=== PATIENT | male | born 1975 | race Caucasian/White ===

== ENCOUNTER 2022-11-11 15:37 | Emergency (ER) | payer BC ==
[2022-11-11] MEDS ORDERED: Sodium Chloride 0.9% 10 ML Syringe FLUSH PRN (15:46)
[2022-11-11 16:24] LABS: BASOPHILS ABSOLUTE AUTO 0.05 K/uL (0.00-0.10); BASOPHILS PERCENT AUTO 0.4 % (0.1-1.3); EOSINOPHILS ABSOLUTE AUTO 0.04 K/uL (0.00-0.40); EOSINOPHILS PERCENT AUTO 0.3 % (0.0-5.4); HEMATOCRIT 45.1 % (38.4-49.7); HEMOGLOBIN 16.3 g/dL (12.9-16.9); IMMATURE GRAN ABSOLUTE AUTO 0.08 K/uL (0.00-0.23); IMMATURE GRAN PERCENT AUTO 0.7 % (0.0-0.7); LYMPHOCYTES ABSOLUTE AUTO 1.56 K/uL (0.8-3.3); LYMPHOCYTES PERCENT AUTO 13.2 % (11.4-47.7); MEAN CORPUSCULAR HEMOGLOBIN 33.3 pg (31.6-35.5); MEAN CORPUSCULAR HGB CONC 36.1 g/dL (31.6-35.5); MONOCYTES ABSOLUTE AUTO 1.01 K/uL (0.20-0.90); MONOCYTES PERCENT AUTO 8.5 % (3.3-12.6); NEUTROPHILS PERCENT AUTO 76.9 % (40.0-78.1); PLATELET COUNT,PLT 358 K/uL (130-375); WHITE BLOOD CELL COUNT,WBC 11.8 K/uL (3.2-11.0)
[2022-11-11 16:54] LABS: CALCIUM 8.9 mg/dL (8.5-10.1); CREATININE 1.1 mg/dL (0.8-1.3); EST CRCL DRUG DOSING (CG) 92.81 mL/min; MAGNESIUM 1.2 mg/dL (1.8-2.4); POTASSIUM,K 3.6 mmol/L (3.6-5.2); T4 FREE 0.99 ng/dL (0.76-1.46); TSH ULTRASENSITIVE 2.725 uIU/mL (0.358-3.740)
[2022-11-11 16:58] LABS: ANION GAP 16.6 mmol/L (5.0-14.0)
[2022-11-11] MEDS ORDERED: Magnesium Oxide 400 MG Tab PO ONE (17:16)
[2022-11-11] MEDS ORDERED: Aspirin 81 MG Tab.Chew PO ONE (17:16)
== END 2022-11-11 17:42 | disposition home or self-care (01) ==
LOC: JP.ED 15:37
DX: E83.42 Hypomagnesemia (principal); R00.2 Palpitations; E11.9 Type 2 diabetes mellitus without complications; E78.5 Hyperlipidemia, unspecified; I10 Essential (primary) hypertension; E87.8 Other disorders of electrolyte and fluid balance, not elsewhere classified; Z79.899 Other long term (current) drug therapy
CPT/HCPCS: 36415; 80048; 83735; 84100; 84439; 84443; 84484; 85025; 93005; 99285; A9270; J3490

== ENCOUNTER 2022-11-12 21:21 | Inpatient (IN) | payer BC ==
[2022-11-12] MEDS ORDERED: Adenosine 6 MG/2 ML SDV ONE (21:32)
[2022-11-12] MEDS ORDERED: Sodium Chloride 0.9% 10 ML Syringe FLUSH PRN (21:34)
[2022-11-12 21:41] LABS: BASOPHILS ABSOLUTE AUTO 0.05 K/uL (0.00-0.10); BASOPHILS PERCENT AUTO 0.6 % (0.1-1.3); EOSINOPHILS ABSOLUTE AUTO 0.04 K/uL (0.00-0.40); EOSINOPHILS PERCENT AUTO 0.4 % (0.0-5.4); HEMOGLOBIN 16.2 g/dL (12.9-16.9); IMMATURE GRAN PERCENT AUTO 0.2 % (0.0-0.7); LYMPHOCYTES ABSOLUTE AUTO 1.96 K/uL (0.8-3.3); LYMPHOCYTES PERCENT AUTO 21.6 % (11.4-47.7); MEAN CORPUSCULAR HEMOGLOBIN 33.1 pg (31.6-35.5); MEAN CORPUSCULAR VOLUME 91.8 fL (81.4-99.0); MONOCYTES ABSOLUTE AUTO 0.87 K/uL (0.20-0.90); MONOCYTES PERCENT AUTO 9.6 % (3.3-12.6); NEUTROPHILS ABSOLUTE AUTO 6.15 K/uL (1.0-7.6); NEUTROPHILS PERCENT AUTO 67.6 % (40.0-78.1); PLATELET COUNT,PLT 325 K/uL (130-375); WHITE BLOOD CELL COUNT,WBC 9.1 K/uL (3.2-11.0)
[2022-11-12 21:48] LABS: IMMATURE GRAN ABSOLUTE AUTO 0.02 K/uL (0.00-0.23)
[2022-11-12] MEDS ORDERED: fentaNYL 100 MCG/2 ML SDV IVPUSH ONE (22:03)
[2022-11-12 22:11] LABS: ALANINE AMINOTRANSFERASE,ALT 46 U/L (12-78); ALBUMIN 3.7 g/dL (3.4-5.0); ALKALINE PHOSPHATASE 84 U/L (46-116); ASPARTATE AMNIOTRANSFERASE,AST 32 U/L (15-37); BILIRUBIN TOTAL 0.4 mg/dL (0.2-1.0); BLOOD UREA NITROGEN,BUN 15 mg/dL (7-18); CALCIUM 8.4 mg/dL (8.5-10.1); CARBON DIOXIDE,CO2 25 mmol/L (21-32); CHLORIDE,CL 96 mmol/L (100-108); CREATININE 1.2 mg/dL (0.8-1.3); EST CRCL DRUG DOSING (CG) 85.08 mL/min; ESTIMATED GFR 75 mL/min (>60); GLUCOSE RANDOM 147 mg/dL (74-106); MAGNESIUM 1.8 mg/dL (1.8-2.4); POTASSIUM,K 3.5 mmol/L (3.6-5.2); PROTEIN TOTAL,TP 7.5 g/dL (6.4-8.2); SODIUM,NA 135 mmol/L (140-148); TROPONIN I HIGH SENSITIVITY 4.5 pg/mL (<=60.3); TSH ULTRASENSITIVE 8.981 uIU/mL (0.358-3.740)
[2022-11-12 22:12] LABS: ANION GAP 17.5 mmol/L (5.0-14.0)
[2022-11-12] MEDS ORDERED: Ibutilide 1 MG/10 ML Vial IVPUSH ONE ×2 (22:17→22:46)
[2022-11-12] MEDS ORDERED: Diltiazem 100 MG in Sodium Chloride 0.9% 100 ML IV SCH (23:45)
[2022-11-12] MEDS ORDERED: Propofol 200 MG/20 ML SDV ONE (23:51)
[2022-11-13] MEDS ORDERED: fentaNYL 100 MCG/2 ML SDV IVPUSH ONE (01:07)
[2022-11-13] MEDS ORDERED: Ondansetron 4 MG/2 ML SDV IV PRN (01:39)
[2022-11-13] MEDS ORDERED: Diltiazem 100 MG in Sodium Chloride 0.9% 100 ML IV SCH (01:39)
[2022-11-13] MEDS ORDERED: Albuterol 0.083% 2.5 MG/3 ML Neb Soln NEB PRN (01:39)
[2022-11-13] MEDS ORDERED: Sodium Chloride 0.9% 10 ML Syringe FLUSH PRN (01:39)
[2022-11-13] MEDS ORDERED: Glucose Gel 15 GM in 37.5 GM Tube PO PRN (01:39)
[2022-11-13] MEDS ORDERED: LORazepam 2 MG/ML SDV IV SCH (01:39)
[2022-11-13] MEDS ORDERED: 50% Dextrose in Water 50 ML Syringe IV PRN (01:39)
[2022-11-13] MEDS ORDERED: HYDROmorphone 0.5 MG/0.5 ML Syringe IVPUSH PRN (01:39)
[2022-11-13] MEDS ORDERED: MVI, Adult with Vitamin K 10 ML, Thiamine 100 MG, Folic Acid 1 MG, Magnesium Sulfate 2 ... IV ONE ×5 (01:39)
[2022-11-13] MEDS ORDERED: Polyethylene Glycol 3350 Powder 17 GM Packet PO PRN (01:39)
[2022-11-13] MEDS: HYDROmorphone 1 MG/ML Syringe IVPUSH PRN ×4 (02:10→08:55)
[2022-11-13] MEDS: Acetaminophen 325 MG Tab PO PRN ×2 (02:10→08:55)
[2022-11-13] MEDS: Gabapentin 400 MG Cap PO SCH ×3 (02:10→17:13)
[2022-11-13] MEDS ORDERED: HYDROmorphone 0.5 MG/0.5 ML Syringe IVPUSH STA (03:30)
[2022-11-13] MEDS ORDERED: LORazepam 1 MG Tab ONE (04:05)
[2022-11-13] MEDS ORDERED: LORazepam 1 MG Tab PO ONE (04:59)
[2022-11-13] MEDS ORDERED: HYDROmorphone 1 MG/ML Syringe ONE (04:59)
[2022-11-13 06:58] LABS: ANION GAP 19.1 mmol/L (5.0-14.0); CALCIUM 7.8 mg/dL (8.5-10.1); CREATININE 0.9 mg/dL (0.8-1.3); EST CRCL DRUG DOSING (CG) 113.44 mL/min; POTASSIUM,K 4.1 mmol/L (3.6-5.2)
[2022-11-13 07:01] LABS: BASOPHILS ABSOLUTE AUTO 0.04 K/uL (0.00-0.10); BASOPHILS PERCENT AUTO 0.4 % (0.1-1.3); EOSINOPHILS ABSOLUTE AUTO 0.03 K/uL (0.00-0.40); EOSINOPHILS PERCENT AUTO 0.3 % (0.0-5.4); IMMATURE GRAN ABSOLUTE AUTO 0.03 K/uL (0.00-0.23); IMMATURE GRAN PERCENT AUTO 0.3 % (0.0-0.7); LYMPHOCYTES ABSOLUTE AUTO 1.44 K/uL (0.8-3.3); LYMPHOCYTES PERCENT AUTO 12.8 % (11.4-47.7); MEAN CORPUSCULAR HEMOGLOBIN 33.3 pg (31.6-35.5); MEAN CORPUSCULAR HGB CONC 35.7 g/dL (31.6-35.5); MEAN CORPUSCULAR VOLUME 93.1 fL (81.4-99.0); MONOCYTES ABSOLUTE AUTO 0.84 K/uL (0.20-0.90); MONOCYTES PERCENT AUTO 7.5 % (3.3-12.6); NEUTROPHILS ABSOLUTE AUTO 8.88 K/uL (1.0-7.6); NEUTROPHILS PERCENT AUTO 78.7 % (40.0-78.1); PLATELET COUNT,PLT 280 K/uL (130-375); RED BLOOD CELL COUNT 4.51 M/uL (4.14-5.76); WHITE BLOOD CELL COUNT,WBC 11.3 K/uL (3.2-11.0)
[2022-11-13] MEDS: Folic Acid 1 MG Tab PO SCH (08:54)
[2022-11-13] MEDS: Levothyroxine 100 MCG Tab PO SCH (08:54)
[2022-11-13] MEDS: Thiamine 100 MG Tab PO SCH (08:55)
[2022-11-13] MEDS: Allopurinol 100 MG Tab PO SCH (08:56)
[2022-11-13] MEDS: Magnesium Oxide 400 MG Tab PO SCH (08:56)
[2022-11-13] MEDS ORDERED: Midazolam 1 MG/ML 2 ML SDV ONE (09:19)
[2022-11-13] MEDS ORDERED: Propofol 200 MG/20 ML SDV ONE (09:19)
[2022-11-13] MEDS ORDERED: fentaNYL 100 MCG/2 ML SDV ONE (09:19)
[2022-11-13] MEDS ORDERED: fentaNYL 250 MCG/5 ML SDV ONE (10:04)
[2022-11-13] MEDS ORDERED: Glycopyrrolate 0.2 MG/ML 5 ML MDV ONE (10:04)
[2022-11-13] MEDS ORDERED: Rocuronium 50 MG/5 ML Vial ONE (10:04)
[2022-11-13] MEDS ORDERED: Neostigmine Methylsulfate 1 MG/ML 5 ML Syringe ONE (10:04)
[2022-11-13] MEDS ORDERED: Dexamethasone 4 MG/ML SDV ONE (10:08)
[2022-11-13] MEDS ORDERED: Ondansetron 4 MG/2 ML SDV ONE (10:08)
[2022-11-13] MEDS ORDERED: Bupivacaine 0.5% 50 ML MDV ONE (11:09)
[2022-11-13] MEDS ORDERED: Succinylcholine 200 MG/10 ML MDV ONE (13:03)
[2022-11-13] MEDS ORDERED: ceFAZolin 1 GM Vial ONE (13:29)
[2022-11-13] MEDS ORDERED: Sodium Chloride 0.9% 10 ML ONE (13:29)
[2022-11-13] MEDS: Sodium Chloride 0.9% 1,000 ML IV SCH ×2 (15:49→23:10)
[2022-11-13] MEDS: metFORMIN 500 MG Tab PO SCH (17:13)
[2022-11-13] MEDS: oxyCODONE 5 MG Tab PO PRN ×2 (17:16→21:20)
[2022-11-14] MEDS: Gabapentin 400 MG Cap PO SCH ×3 (01:53→17:08)
[2022-11-14] MEDS: oxyCODONE 5 MG Tab PO PRN ×4 (01:53→21:13)
[2022-11-14] MEDS: HYDROmorphone 1 MG/ML Syringe IVPUSH PRN ×2 (04:51→11:31)
[2022-11-14 05:11] LABS: BASOPHILS PERCENT AUTO 0.2 % (0.1-1.3); HEMATOCRIT 38.7 % (38.4-49.7); HEMOGLOBIN 13.6 g/dL (12.9-16.9); IMMATURE GRAN ABSOLUTE AUTO 0.07 K/uL (0.00-0.23); IMMATURE GRAN PERCENT AUTO 0.5 % (0.0-0.7); LYMPHOCYTES PERCENT AUTO 6.2 % (11.4-47.7); MEAN CORPUSCULAR HEMOGLOBIN 32.9 pg (31.6-35.5); MEAN CORPUSCULAR HGB CONC 35.1 g/dL (31.6-35.5); MEAN CORPUSCULAR VOLUME 93.7 fL (81.4-99.0); MONOCYTES ABSOLUTE AUTO 0.81 K/uL (0.20-0.90); MONOCYTES PERCENT AUTO 6.2 % (3.3-12.6); NEUTROPHILS ABSOLUTE AUTO 11.29 K/uL (1.0-7.6); NEUTROPHILS PERCENT AUTO 86.9 % (40.0-78.1); PLATELET COUNT,PLT 236 K/uL (130-375); RED BLOOD CELL COUNT 4.13 M/uL (4.14-5.76)
[2022-11-14 05:15] LABS: BASOPHILS ABSOLUTE AUTO 0.02 K/uL (0.00-0.10)
[2022-11-14 05:30] LABS: CALCIUM 7.3 mg/dL (8.5-10.1); CREATININE 0.9 mg/dL (0.8-1.3); EST CRCL DRUG DOSING (CG) 113.44 mL/min; MAGNESIUM 1.7 mg/dL (1.8-2.4); POTASSIUM,K 4.4 mmol/L (3.6-5.2)
[2022-11-14 05:39] LABS: ANION GAP 12.4 mmol/L (5.0-14.0)
[2022-11-14] MEDS: Levothyroxine 100 MCG Tab PO SCH (07:58)
[2022-11-14] MEDS: Magnesium Sulfate/Water 2 GM in Premix Bag 1 BAG IV SCH ×2 (08:09→13:40)
[2022-11-14] MEDS: metFORMIN 500 MG Tab PO SCH ×2 (09:13→17:09)
[2022-11-14] MEDS: Folic Acid 1 MG Tab PO SCH (09:14)
[2022-11-14] MEDS: Thiamine 100 MG Tab PO SCH (09:15)
[2022-11-14] MEDS: Allopurinol 100 MG Tab PO SCH (09:15)
[2022-11-14] MEDS: Magnesium Oxide 400 MG Tab PO SCH (09:15)
[2022-11-14] MEDS: Metoprolol Tartrate 25 MG Tab PO SCH ×3 (10:43→21:07)
[2022-11-14] MEDS: Hypromellose 0.3% Ophth Soln 15 ML Bottle EYEBOTH PRN ×2 (10:44→17:07)
[2022-11-14] MEDS ORDERED: Aspirin 81 MG Tab.Chew PO SCH (21:00)
[2022-11-14] MEDS: Acetaminophen 325 MG Tab PO PRN (21:13)
[2022-11-15] MEDS: Metoprolol Tartrate 25 MG Tab PO SCH (03:26)
[2022-11-15] MEDS: Gabapentin 400 MG Cap PO SCH ×3 (03:26→16:59)
[2022-11-15] MEDS: Acetaminophen/HYDROcodone 325-5 MG Tab PO PRN ×2 (04:51→11:19)
[2022-11-15 05:49] LABS: BASOPHILS ABSOLUTE AUTO 0.04 K/uL (0.00-0.10); BASOPHILS PERCENT AUTO 0.3 % (0.1-1.3); EOSINOPHILS ABSOLUTE AUTO 0.04 K/uL (0.00-0.40); EOSINOPHILS PERCENT AUTO 0.3 % (0.0-5.4); HEMOGLOBIN 12.4 g/dL (12.9-16.9); IMMATURE GRAN ABSOLUTE AUTO 0.07 K/uL (0.00-0.23); IMMATURE GRAN PERCENT AUTO 0.6 % (0.0-0.7); LYMPHOCYTES ABSOLUTE AUTO 1.87 K/uL (0.8-3.3); LYMPHOCYTES PERCENT AUTO 15.8 % (11.4-47.7); MEAN CORPUSCULAR HEMOGLOBIN 32.9 pg (31.6-35.5); MEAN CORPUSCULAR HGB CONC 34.4 g/dL (31.6-35.5); MEAN CORPUSCULAR VOLUME 95.5 fL (81.4-99.0); MONOCYTES ABSOLUTE AUTO 0.96 K/uL (0.20-0.90); MONOCYTES PERCENT AUTO 8.1 % (3.3-12.6); NEUTROPHILS ABSOLUTE AUTO 8.83 K/uL (1.0-7.6); NEUTROPHILS PERCENT AUTO 74.9 % (40.0-78.1); PLATELET COUNT,PLT 216 K/uL (130-375); RED BLOOD CELL COUNT 3.77 M/uL (4.14-5.76); WHITE BLOOD CELL COUNT,WBC 11.8 K/uL (3.2-11.0)
[2022-11-15 06:06] LABS: CALCIUM 7.3 mg/dL (8.5-10.1); CREATININE 0.8 mg/dL (0.8-1.3); EST CRCL DRUG DOSING (CG) 127.62 mL/min; MAGNESIUM 1.8 mg/dL (1.8-2.4); POTASSIUM,K 3.9 mmol/L (3.6-5.2)
[2022-11-15 06:09] LABS: ANION GAP 10.9 mmol/L (5.0-14.0)
[2022-11-15] MEDS: Levothyroxine 100 MCG Tab PO SCH (07:55)
[2022-11-15] MEDS: metFORMIN 500 MG Tab PO SCH ×2 (07:59→17:00)
[2022-11-15] MEDS: Allopurinol 100 MG Tab PO SCH (08:01)
[2022-11-15] MEDS: Folic Acid 1 MG Tab PO SCH (08:04)
[2022-11-15] MEDS: Thiamine 100 MG Tab PO SCH (08:04)
[2022-11-15] MEDS: Magnesium Oxide 400 MG Tab PO SCH (08:04)
[2022-11-15] MEDS: Metoprolol Succinate 50 MG Tab.ER PO SCH (08:21)
[2022-11-15] MEDS ORDERED: Potassium Chloride 20 MEQ Tab.ER PO ONE (12:45)
[2022-11-15] MEDS ORDERED: Magnesium Sulfate/Water 2 GM in Premix Bag 1 BAG IV SCH (13:00)
[2022-11-15] MEDS ORDERED: Diltiazem 100 MG in Sodium Chloride 0.9% 100 ML IV SCH (17:30)
[2022-11-15] MEDS ORDERED: Diltiazem 25 MG/5 ML SDV IVPUSH ONE (17:30)
[2022-11-15] MEDS: Aspirin 81 MG Tab.Chew PO SCH (20:29)
[2022-11-16] MEDS: Gabapentin 400 MG Cap PO SCH ×3 (01:32→17:20)
[2022-11-16] MEDS: metFORMIN 500 MG Tab PO SCH ×2 (07:54→17:19)
[2022-11-16] MEDS: Levothyroxine 100 MCG Tab PO SCH (07:54)
[2022-11-16] MEDS: Allopurinol 100 MG Tab PO SCH (07:59)
[2022-11-16] MEDS: Metoprolol Succinate 50 MG Tab.ER PO SCH (07:59)
[2022-11-16] MEDS: Folic Acid 1 MG Tab PO SCH (08:00)
[2022-11-16] MEDS: Magnesium Oxide 400 MG Tab PO SCH (08:01)
[2022-11-16] MEDS: Thiamine 100 MG Tab PO SCH (08:03)
[2022-11-16] MEDS ORDERED: Diltiazem 25 MG/5 ML SDV IVPUSH ONE (08:38)
[2022-11-16] MEDS: Aspirin 81 MG Tab.Chew PO SCH ×2 (10:04→13:37)
[2022-11-16] MEDS: Apixaban 5 MG Tab PO SCH ×2 (10:05→21:03)
[2022-11-16] MEDS: Diltiazem IR 30 MG Tab PO SCH ×3 (10:05→21:02)
[2022-11-16] MEDS: Acetaminophen/HYDROcodone 325-5 MG Tab PO PRN (10:12)
[2022-11-16] MEDS: oxyCODONE 5 MG Tab PO PRN (21:02)
[2022-11-17] MEDS: Gabapentin 400 MG Cap PO SCH ×3 (02:59→17:16)
[2022-11-17] MEDS: Diltiazem IR 30 MG Tab PO SCH (02:59)
[2022-11-17] MEDS: metFORMIN 500 MG Tab PO SCH ×2 (08:11→17:15)
[2022-11-17] MEDS: Levothyroxine 100 MCG Tab PO SCH (08:11)
[2022-11-17] MEDS: Apixaban 5 MG Tab PO SCH ×3 (08:16→21:16)
[2022-11-17] MEDS: Aspirin 81 MG Tab.Chew PO SCH ×2 (08:16→09:42)
[2022-11-17] MEDS: Folic Acid 1 MG Tab PO SCH ×2 (08:16→09:43)
[2022-11-17] MEDS: Magnesium Oxide 400 MG Tab PO SCH (08:16)
[2022-11-17] MEDS: Thiamine 100 MG Tab PO SCH (08:16)
[2022-11-17] MEDS ORDERED: Diltiazem 120 MG Cap.CD PO SCH (09:00)
[2022-11-17] MEDS: Metoprolol Succinate 50 MG Tab.ER PO SCH (09:37)
[2022-11-17] MEDS: Diltiazem 180 MG Cap.CD PO SCH (09:42)
[2022-11-17] MEDS: Allopurinol 100 MG Tab PO SCH (09:44)
[2022-11-17] MEDS: Acetaminophen/HYDROcodone 325-5 MG Tab PO PRN ×2 (14:01→21:50)
[2022-11-18] MEDS: Gabapentin 400 MG Cap PO SCH ×2 (03:18→10:55)
[2022-11-18] MEDS: metFORMIN 500 MG Tab PO SCH (07:59)
[2022-11-18] MEDS: Levothyroxine 100 MCG Tab PO SCH (08:00)
[2022-11-18] MEDS: Magnesium Oxide 400 MG Tab PO SCH (08:00)
[2022-11-18] MEDS: Thiamine 100 MG Tab PO SCH (08:01)
[2022-11-18] MEDS: Folic Acid 1 MG Tab PO SCH (08:01)
[2022-11-18] MEDS: Metoprolol Succinate 50 MG Tab.ER PO SCH (08:02)
[2022-11-18] MEDS: Diltiazem 180 MG Cap.CD PO SCH (08:02)
[2022-11-18] MEDS: Apixaban 5 MG Tab PO SCH (08:02)
[2022-11-18] MEDS: Aspirin 81 MG Tab.Chew PO SCH (08:02)
[2022-11-18] MEDS: Allopurinol 100 MG Tab PO SCH (08:07)
[2022-11-18] MEDS: Acetaminophen/HYDROcodone 325-5 MG Tab PO PRN (13:22)
== END 2022-11-18 15:51 | disposition home or self-care (01) | DRG 313 ==
LOC: JP.ED 21:21 → JP.ICU 11-13 00:54
PROVIDERS: ADMIT Hospitalist; ATTEND Internal Medicine
PROC: 0QSJ04Z Reposition Right Fibula with Internal Fixation Device, Open Approach (ICD-10-PCS; principal; 2022-11-13)
PROC: 0MQQ0ZZ Repair Right Ankle Bursa and Ligament, Open Approach (ICD-10-PCS; 2022-11-13)
DX: S82.851A Displaced trimalleolar fracture of right lower leg, initial encounter for closed fracture (principal); I48.92 Unspecified atrial flutter; F10.930 Alcohol use, unspecified with withdrawal, uncomplicated; I10 Essential (primary) hypertension; E11.9 Type 2 diabetes mellitus without complications; Z20.822 Contact with and (suspected) exposure to COVID-19; Y90.6 Blood alcohol level of 120-199 mg/100 ml; E83.42 Hypomagnesemia; E78.5 Hyperlipidemia, unspecified; E03.9 Hypothyroidism, unspecified; F10.920 Alcohol use, unspecified with intoxication, uncomplicated; R55 Syncope and collapse; R94.6 Abnormal results of thyroid function studies; Z98.890 Other specified postprocedural states; Z79.84 Long term (current) use of oral hypoglycemic drugs; Z79.82 Long term (current) use of aspirin; Z79.01 Long term (current) use of anticoagulants; Z79.899 Other long term (current) drug therapy; Z90.49 Acquired absence of other specified parts of digestive tract
CPT/HCPCS: 27818; 36415; 73600-26-RT; 73600-RT; 76000; 76000-26; 80048; 80053; 80307; 82947; 83735; 84439; 84443; 84484; 85025; 93005; 93010; 93306; 96365; 96375; 96376; 97110-GP; 97116-GP; 97161-GP; 97530-GP; 99222; 99232; 99239; 99285; 99285-25; A9270-GY; C1713; C1776; J0330; J0690; J1100; J1170; J1742; J2060; J2250; J2405; J2704; J2710; J3010; J3411; J3475; J3490; J7030; U0002